=== PATIENT | male | born 1945 | race Hispanic/Latino ===

== ENCOUNTER 2018-08-10 13:43 | Outpatient (CLI) | payer MEDICARE ==
--- NOTE | 2018-08-10 18:53 | MRI ---
MRI BRAIN WITH AND WITHOUT CONTRAST 08/10/18 Multiplanar and multisequential imaging of the brain obtained. Postcontrast images were obtained admi nistering 18 mL of Multihance IV. Internal auditory canal protocol was followed. INDICATIONS: Hearing loss left ear. FINDINGS: Ventricles have normal size and position. Cortical volume loss is seen, especially prominent involvin g the frontal lobes as noted on recent CT. No evidence of mass or edema. No significant white matter abnormality. 7th and 8th cranial nerves are identified and appear unremarkable. No evidence of acoustic schwannoma . No other evidence of cerebellar pontine angle mass lesion. No abnormal enhancement identified. No e vidence of restricted diffusion. The intracranial internal carotid arteries, proximal cerebral arteri es and basilar arteries show expected flow voids. IMPRESSION: There is prominent frontal lobe cortical atrophy which is symmetric. No acute abnormality. No evidenc e of acoustic schwannoma. POS: [facility]
== END 2018-08-10 13:44 | disposition home or self-care (01) ==
LOC: SCSMRI 13:43
PROVIDERS: ATTEND Otolaryngology Plastic Surgery within the Head & Neck
DX: H91.22 Sudden idiopathic hearing loss, left ear (principal); G31.9 Degenerative disease of nervous system, unspecified
CPT/HCPCS: 70553; 82565

== ENCOUNTER 2020-01-09 13:49 | Outpatient (CLI) | payer MEDICARE ==
--- NOTE | 2020-01-09 14:57 | ULT ---
US Renal Bilateral STANDARD: 01/09/2020 12:00 AM CLINICAL HISTORY: Chronic kidney disease. STUDY: Renal ultrasound COMPARISON: None. FINDINGS: Right kidney: Echogenicity: Normal. Masses/cysts: None. Hydronephrosis: None. Calcifications: None. Length: 12.1 cm Left kidney: Echogenicity: Normal. Masses/cysts: 2 cysts measuring up to 2.5 cm in size. Hydronephrosis: None. Calcifications: None. Length: 10.3 cm Limited visualization of the urinary bladder is unremarkable. IMPRESSION: Left renal cysts
== END 2020-01-09 13:50 | disposition home or self-care (01) ==
LOC: SCSULT 13:49
PROVIDERS: ATTEND Internal Medicine Nephrology
DX: N18.4 Chronic kidney disease, stage 4 (severe) (principal); N28.1 Cyst of kidney, acquired
CPT/HCPCS: 76770

== ENCOUNTER 2024-01-04 10:22 | Emergency (ER) | payer OTHER ==
[2024-01-04] MEDS ORDERED: Silver Sulfadiazine 50 GM TUBE ONE (10:43)
[2024-01-04] MEDS ORDERED: Silver Nitrate Application 1 EACH ONE (10:44)
== END 2024-01-04 11:35 | disposition home or self-care (01) ==
LOC: ERS 10:22
DX: T22.212A Burn of second degree of left forearm, initial encounter (principal); T22.211A Burn of second degree of right forearm, initial encounter; T20.26XA Burn of second degree of forehead and cheek, initial encounter; T20.16XA Burn of first degree of forehead and cheek, initial encounter; T22.112A Burn of first degree of left forearm, initial encounter; T22.111A Burn of first degree of right forearm, initial encounter; T31.0 Burns involving less than 10% of body surface; E11.22 Type 2 diabetes mellitus with diabetic chronic kidney disease; N18.6 End stage renal disease; I25.10 Atherosclerotic heart disease of native coronary artery without angina pectoris; W40.1XXA Explosion of explosive gases, initial encounter; Y93.89 Activity, other specified
CPT/HCPCS: 99283